=== PATIENT | female | born 1990 | race Caucasian/White ===

== ENCOUNTER 2017-09-24 23:51 | Observation (INO) | payer MEDICARE, MEDICAID ==
[2017-09-25 00:47] LABS: ABS Basophils 0.1 10^3/ul (0-0.2); ABS Eosinophils 0.2 10^3/ul (0-0.6); ABS Lymphocytes 3.9 10^3/ul (1.0-4.8); ABS Neutrophils 7.3 10^3/ul (1.5-7.7); ABS Nucleated RBC 0 10^3/ul; Eosinophil % 1.5 % (0-6); Hematocrit 37 % (35-47); Hemoglobin 12.4 g/dl (12.0-16.0); Lymphocyte % 31.2 % (25-47); Mean Corpuscular HGB Conc 33 g/dl (31-36); Mean Corpuscular Hemoglobin 28 pg (27-31); Mean Corpuscular Volume 83 fL (80-97); Mean Platelet Volume 9.2 um3 (7.4-10.4); Nucleated Red Blood Cells % 0; Platelet Count 212 10^3/ul (150-450); Red Blood Count 4.48 10^6/ul (4.0-5.4); Red Cell Distribution Width 13 % (10.5-15); White Blood Count 12.5 10^3/ul (3.5-10.8)
[2017-09-25] MEDS ORDERED: traMADol TAB* 50 MG PO PRN (04:29)
[2017-09-25] MEDS ORDERED: Albuterol 2.5 MG/3 ML NEB.SOL* (0.083%) INH PRN (04:29)
[2017-09-25] MEDS ORDERED: Acetaminophen TAB* 325 MG PO PRN (04:29)
[2017-09-25] MEDS ORDERED: Ondansetron INJ* 2 MG/ML VIAL IV PRN (04:29)
[2017-09-25] MEDS ORDERED: NS 0.9% 1000 ML* 1,000 ML IV SCH (04:30)
[2017-09-25] MEDS: Omeprazole CAP* 20 MG PO SCH (04:59)
[2017-09-25 05:36] LABS: Hematocrit 36 % (35-47); Hemoglobin 12.3 g/dl (12.0-16.0); Mean Corpuscular HGB Conc 34 g/dl (31-36); Mean Corpuscular Hemoglobin 28 pg (27-31); Mean Corpuscular Volume 83 fL (80-97); Mean Platelet Volume 9.7 um3 (7.4-10.4); Platelet Count 211 10^3/ul (150-450); Red Blood Count 4.35 10^6/ul (4.0-5.4); Red Cell Distribution Width 13 % (10.5-15); White Blood Count 10.5 10^3/ul (3.5-10.8)
--- NOTE | 2017-09-25 06:04 | HP ---
H&P (Free Text) History and Physical: PCP: Dr Serna Date/Time: 09/25/2017 0130 CC: chest pain HPI: Mrs Peterson is a 27YO female HX GERD & Mobitz I who has been under increased stress of late. She reports onset of sharp L chest pain radiating to the LUE associated with sweats, palpitations, & light-headedness, but no SOB or N/V. She was diagnosed with bronchitis Saturday and has had copious coughing, congestion, & phlegm, but no F/C. Bowel and bladder are normal. She presented to [facility] ED where her troponin increased prompting request for transfer. PMedHx GERD Mobitz I Ambulatory Orders Nexium 1 cap PO DAILY 09/25/17 Allergies albuterol Allergy (Verified 09/25/17 05:49) Tachycardia cephalexin Allergy (Verified 09/25/17 05:49) Hives codeine Allergy (Verified 09/25/17 05:49) Blisters diphenhydramine Allergy (Verified 09/25/17 05:49) Hives epinephrine Allergy (Verified 09/25/17 05:49) See Comment pt states makes thing worse instead of better fluoxetine Allergy (Verified 09/25/17 05:49) See Comment Suicidal Ideations lorazepam Allergy (Verified 09/25/17 05:49) Hives sertraline Allergy (Verified 09/25/17 05:49) Hives PSurgHx B knee arthroscopies SocHx: reports 1/4PPD cigarettes but states it is much more, denies alcohol & recreational drugs; lives with her ; full code status FamHx: Mother: CAD onset in her 50s; Father: CAD onset in his 30s. ROS: as above, otherwise reviewed and all were negative vitals: Vital Signs Temp 37.0 C 09/25/17 03:41 Pulse 85 09/25/17 03:41 Resp 16 09/25/17 04:59 BP 107/65 09/25/17 03:41 Pulse Ox 99 09/25/17 03:41 Intake & Output 09/24/17 09/24/17 09/25/17 11:59 23:59 11:59 Weight 95.164 kg Constitutional: NAD, normally developed, obese female HEENM: atraumatic; sclera/conjunctiva: anicteric/clear; hearing: clinically intact; oropharynx: clear, mucosa moist Neck: soft tissue: non-tender; thyroid: normal Pulmonary: clear to auscultation bilaterally, good aeration, no accessory muscle use CV: RR/RR, normal S1S2, no carotid bruit, no jugular venous distention, 2+ B DP/ PT, no edema Abdominal: soft, non-distended, non-tender, no rebound/guarding/rigidity, normoactive bowel sounds, no hepatosplenomegaly or masses, no costovertebral angle tenderness Musculoskeletal: general: grossly intact, no tenderness to palpation Integumental: circular scarring B breasts due to "trauma" which she declines to elaborate upon Psychiatric orientation: AA&O to PPS affect: fatigued mood: cooperative eye contact: poor content: mostly reliable responses: timely insight: fair Testing: Lab Results 09/25/17 09/25/17 09/25/17 Range/Units 00:38 00:38 00:38 WBC 12.5 H (3.5-10.8) 10^3/ul RBC 4.48 (4.0-5.4) 10^6/ul Hgb 12.4 (12.0-16.0) g/dl Hct 37 (35-47) % MCV 83 (80-97) fL MCH 28 (27-31) pg MCHC 33 (31-36) g/dl RDW 13 (10.5-15) % Plt Count 212 (150-450) 10^3/ul MPV 9.2 (7.4-10.4) um3 Neut % (Auto) 58.4 (38-83) % Lymph % (Auto) 31.2 (25-47) % [place] % (Auto) 7.7 H (0-7) % Eos % (Auto) 1.5 (0-6) % Baso % (Auto) 1.2 (0-2) % Absolute Neuts (auto) 7.3 (1.5-7.7) 10^3/ul Absolute Lymphs (auto) 3.9 (1.0-4.8) 10^3/ul Absolute Monos (auto) 1.0 H (0-0.8) 10^3/ul Absolute Eos (auto) 0.2 (0-0.6) 10^3/ul Absolute Basos (auto) 0.1 (0-0.2) 10^3/ul Absolute Nucleated RBC 0 10^3/ul Nucleated RBC % 0 D-Dimer, Quantitative (Less Than 230) ng/mL Sodium 137 L (139-145) mmol/L Potassium 3.6 (3.5-5.0) mmol/L Chloride 107 (101-111) mmol/L Carbon Dioxide 22 (22-32) mmol/L Anion Gap 8 (2-11) mmol/L BUN 10 (6-24) mg/dL Creatinine 0.79 (0.51-0.95) mg/dL Est GFR ( Amer) 113.1 (>60) Est GFR (Non-Af Amer) 88.0 (>60) BUN/Creatinine Ratio 12.7 (8-20) Glucose 134 H (70-100) mg/dL Lactic Acid 0.6 (0.5-2.0) mmol/L Calcium 8.8 (8.6-10.3) mg/dL Total Bilirubin 0.20 (0.2-1.0) mg/dL AST 12 L (13-39) U/L ALT 15 (7-52) U/L Alkaline Phosphatase 91 (34-104) U/L Troponin I 0.04 H* (<0.04) ng/mL Total Protein 6.1 L (6.4-8.9) g/dL Albumin 3.4 (3.2-5.2) g/dL Globulin 2.7 (2-4) g/dL Albumin/Globulin Ratio 1.3 (1-3) 09/25/17 09/25/17 09/25/17 Range/Units 00:38 05:03 05:03 WBC 10.5 (3.5-10.8) 10^3/ul RBC 4.35 (4.0-5.4) 10^6/ul Hgb 12.3 (12.0-16.0) g/dl Hct 36 (35-47) % MCV 83 (80-97) fL MCH 28 (27-31) pg MCHC 34 (31-36) g/dl RDW 13 (10.5-15) % Plt Count 211 (150-450) 10^3/ul MPV 9.7 (7.4-10.4) um3 Neut % (Auto) (38-83) % Lymph % (Auto) (25-47) % [place] % (Auto) (0-7) % Eos % (Auto) (0-6) % Baso % (Auto) (0-2) % Absolute Neuts (auto) (1.5-7.7) 10^3/ul Absolute Lymphs (auto) (1.0-4.8) 10^3/ul Absolute Monos (auto) (0-0.8) 10^3/ul Absolute Eos (auto) (0-0.6) 10^3/ul Absolute Basos (auto) (0-0.2) 10^3/ul Absolute Nucleated RBC 10^3/ul Nucleated RBC % D-Dimer, Quantitative < 200 (Less Than 230) ng/mL Sodium (139-145) mmol/L Potassium (3.5-5.0) mmol/L Chloride (101-111) mmol/L Carbon Dioxide (22-32) mmol/L Anion Gap (2-11) mmol/L BUN (6-24) mg/dL Creatinine (0.51-0.95) mg/dL Est GFR ( Amer) (>60) Est GFR (Non-Af Amer) (>60) BUN/Creatinine Ratio (8-20) Glucose (70-100) mg/dL Lactic Acid (0.5-2.0) mmol/L Calcium (8.6-10.3) mg/dL Total Bilirubin (0.2-1.0) mg/dL AST (13-39) U/L ALT (7-52) U/L Alkaline Phosphatase (34-104) U/L Troponin I 0.02 (<0.04) ng/mL Total Protein (6.4-8.9) g/dL Albumin (3.2-5.2) g/dL Globulin (2-4) g/dL Albumin/Globulin Ratio (1-3) ECG, personally reviewed: sinus rhythm rate 90, NV depression III, J-point elevation V2-3 Impression: 27F presenting with atypical chest pain for r/o ACS DIAGNOSIS & PLAN Primary atypical chest pain r/o ACS : telemetry : trend troponin : given aspirin via EMS en route from [facility] : exercise stress test in AM : supplemental oxygen : supportive care Secondary GERD : continue esomeprazole Admission Rational: observation for r/o ACS DVTp: BERTA Code Status: full HCP:
[2017-09-25] MEDS ORDERED: Ibuprofen TAB* 600 MG PO PRN (09:40)
[2017-09-25] MEDS: Docusate CAP* 100 MG PO SCH ×2 (10:08→20:18)
[2017-09-25] MEDS ORDERED: Aspirin EC TAB* 325 MG PO ONE (10:47)
--- NOTE | 2017-09-25 11:57 | PN ---
Subjective Date of Service: 09/25/17 Interval History: Pt c/o URI symptoms for 2 weeks, son who is 2 yrs old also sick. CP developed 1 day ago, pleuritic, worse with laying down Objective Active Medications: Acetaminophen (Tylenol Tab*) 650 mg PO Q6H PRN PRN Reason: FEVER/PAIN Albuterol (Ventolin 2.5 Mg/3 Ml Neb.Olga*) 2.5 mg INH Q2H PRN PRN Reason: SOB/WHEEZING Aspirin (Aspirin Tab*) 650 mg PO TID [facility] Colchicine (Colcrys*) 0.6 mg PO DAILY [facility] Docusate Sodium (Colace Cap*) 200 mg PO BID [facility] Last Admin: 09/25/17 10:08 Dose: Not Given Omeprazole (Prilosec Cap*) 20 mg PO DAILY@0600 [facility] Last Admin: 09/25/17 04:59 Dose: 20 mg Ondansetron HCl (Zofran Inj*) 4 mg IV Q6H PRN PRN Reason: NAUSEA Vital Signs - 8 hr 09/25/17 09/25/17 09/25/17 04:59 07:54 08:00 Temperature 98.3 F Pulse Rate 76 Respiratory 16 18 18 Rate Blood Pressure 106/57 (mmHg) O2 Sat by Pulse 98 99 Oximetry 09/25/17 09/25/17 10:57 11:26 Temperature 98.7 F Pulse Rate 86 81 Respiratory 14 18 Rate Blood Pressure 109/52 (mmHg) O2 Sat by Pulse 98 95 Oximetry Oxygen Devices in Use Now: None Appearance: 27 yo F in nAD, aAOx4 Eyes: No Scleral Icterus, PERRLA Ears/Nose/Mouth/Throat: NL Teeth, Lips, Gums, Mucous Membranes Moist Neck: NL Appearance and Movements; NL JVP, Trachea Midline Respiratory: Symmetrical Chest Expansion and Respiratory Effort, Clear to Auscultation Cardiovascular: NL Sounds; No Murmurs; No JVD, RRR Abdominal: NL Sounds; No Tenderness; No Distention, No Hepatosplenomegaly Lymphatic: No Cervical Adenopathy Extremities: No Edema, No Clubbing, Cyanosis Skin: No Rash or Ulcers, No Nodules or Sclerosis Neurological: Alert and Oriented x 3, NL Muscle Strength and Tone Result Diagrams: 09/25/17 05:03 09/25/17 00:38 Assess/Plan/Problems-Billing Assessment: 27 yo F with h/o Mobitz 2(not evaluated by a content strategist yet), ibuprofen OD(at age 16 yo) presents with peluritic CP - Patient Problems (1) Chest pain Comment: EKG changes, elevated CRP and history consistent with pericarditis. will start ASA TID (pt overdosed on ibuprofen at age 16 yo) and daily colchicine Echo pending (2) Mobitz type 2 second degree atrioventricular block Comment: pt was noted to have Mobitz 2 - 2 yrs ago , but has never seen a content strategist will d/w cardiology (3) DVT prophylaxis Comment: ambulatory Status and Disposition: OBV, d/c tomorrow
[2017-09-25] MEDS: Colchicine* 0.6 MG TAB PO SCH (12:36)
--- NOTE | 2017-09-25 12:58 | ECHO ---
Patient: FREDI MIGUEL [facility] Rec#: [id number] : 1990 Date: 09/25/2017 Age: 27y Height: 157.48 cm / 62.0 in Weight: 94.8 kg / 208.9 lbs Sex: F BSA: 1.95 Room#: 432 Admit Date#: 09/25/2017 Type: Inpatient Referring: Yolande Jones MD Reading: Denisse Franklin MD Sizing Sprayer: Zuleyka McclainRDCS,RDMS Transthoracic Echocardiogram Indication: CP BP: 106/57 HR: 77 Rhythm: NSR Findings History: Smoker, GERD, Mobitz I Technical Comments: The study quality is good. Left Ventricle: The left ventricular chamber size is normal. Mild concentric left ventricular hypertrophy is observed.1.1 cm Global left ventricular wall motion and contractility are within normal limits. The estimated ejection fraction is 60-65%. Normal left ventricular diastolic filling is observed. Left Atrium: The left atrial chamber size is normal. Right Ventricle: The right ventricular chamber size and systolic function are within normal limits. Right Atrium: The right atrial cavity size is normal. Aortic Valve: There is no evidence of aortic valve thickening. There is a trace of aortic regurgitation.Forward flow in LVOT noted in late diastole. There is no evidence of aortic stenosis. Mitral Valve: The mitral valve leaflets appear normal. There is a trace of mitral regurgitation. There is no evidence of mitral stenosis. Tricuspid Valve: The tricuspid valve leaflets are normal. There is trace tricuspid regurgitation. Unable to estimate the right ventricular systolic pressure. Pulmonic Valve: The pulmonic valve structure is not well visualized. There is no evidence of pulmonic regurgitation. Pericardium: There is no significant pericardial effusion. Aorta: The aortic root appears normal. There is no dilatation of the aortic arch. Pulmonary Artery: The main pulmonary artery is not well visualized. Venous: The inferior vena cava appears normal. Conclusions Normal LV chamber diameter. Mild concentric left ventricular hypertrophy is observed.1.1 cm Global left ventricular wall motion and contractility are within normal limits. The estimated ejection fraction is 60-65%. The right ventricular chamber size and systolic function are within normal limits. All valves show good excursion. There is a trace of aortic regurgitation with forward flow in LVOT noted in late diastole. There is a trace of mitral regurgitation. There is trace tricuspid regurgitation. There is no significant pericardial effusion. No prior echo to compare. Measurements Name Value Normal Range RVIDd (AP) 2D 2.2 cm (0.9 - 2.6) RAd ISD 4CH 4.4 cm (3.4 - 4.9) RA (A4C)W 3.6 cm (2.9 - 4.6) IVSd (2D) 1.1 cm (0.6 - 1) LVPWd (2D) 1.1 cm (0.6 - 1) LVIDd (2D) 3.6 cm (3.6 - 5.4) LVIDs (2D) 1.9 cm - LV FS (2D) 48 % (25 - 45) Aortic Annulus 2.3 cm (1.4 - 2.6) Ao root diameter (2D) 2.6 cm (2.1 - 3.5) Ascending Ao 2.3 cm (2.1 - 3.4) Aortic arch 2.3 cm (1.8 - 3.4) LA dimension (AP) 2D 2.9 cm (2.3 - 3.8) LAd ISD 4CH 4.6 cm (2.9 - 5.3) LA ISD 4CH W 3.7 cm (2.5 - 4.5) Name Value Normal Range LA ESV SP 4CH (A/L) 44.1 ml - LA ESV SP 2CH (A/L) 61.22 ml - LA ESV BP (A/L) 52.58 ml - LA ESV BP (A/L) index 27 ml/m2 - LA ESV SP 4CH (MOD) 39.44 ml - LA ESV SP 2CH (MOD) 58.62 ml - Name Value Normal Range MV E-wave Vmax 1.1 m/sec - MV deceleration time 155 msec - MV A-wave Vmax 0.6 m/sec - MV E:A ratio 1.8 ratio - LV septal e' Vmax 0.13 m/sec - LV lateral e' Vmax 0.1 m/sec - LV E:e' septal ratio 8.5 ratio - LV E:e' lateral ratio 11 ratio - Name Value Normal Range AV Vmax 1.4 m/sec - AV VTI 30.1 cm - AV peak gradient 8 mmHg - AV mean gradient 4.3 mmHg - LVOT Vmax 1.3 m/sec - LVOT VTI 25 cm - LVOT peak gradient 7 mmHg - LVOT mean gradient 3.5 mmHg - KAROL Vmax 1.2 m/sec - Name Value Normal Range MV Vmax 1.2 m/sec - MV VTI 22 cm - MV peak gradient 6 mmHg - MV mean gradient 2.3 mmHg - MV PHT 50 msec - MVA (PHT) 4.4 cm2 - Name Value Normal Range RAP 8 mmHg - IVC diameter 1.5 cm - Name Value Normal Range PV Vmax 0.8 m/sec - PV peak gradient 2.6 mmHg -
[2017-09-25] MEDS ORDERED: Ibuprofen TAB* 600 MG PO SCH (14:00)
[2017-09-25] MEDS: Aspirin TAB* 325 MG PO SCH ×2 (14:58→20:16)
[2017-09-26] MEDS: Omeprazole CAP* 20 MG PO SCH (05:18)
[2017-09-26] MEDS ORDERED: Aspirin EC TAB* 81 MG TAB.EC PO SCH (09:00)
[2017-09-26] MEDS: Aspirin TAB* 325 MG PO SCH (09:46)
[2017-09-26] MEDS: Docusate CAP* 100 MG PO SCH (09:46)
[2017-09-26] MEDS: Colchicine* 0.6 MG TAB PO SCH (09:47)
--- NOTE | 2017-09-26 13:04 | PN ---
Objective Active Medications: Acetaminophen (Tylenol Tab*) 650 mg PO Q6H PRN PRN Reason: FEVER/PAIN Last Admin: 09/25/17 17:17 Dose: 650 mg Albuterol (Ventolin 2.5 Mg/3 Ml Neb.Olga*) 2.5 mg INH Q2H PRN PRN Reason: SOB/WHEEZING Aspirin (Aspirin Tab*) 650 mg PO TID [facility] Last Admin: 09/26/17 09:46 Dose: 650 mg Colchicine (Colcrys*) 0.6 mg PO DAILY [facility] Last Admin: 09/26/17 09:47 Dose: 0.6 mg Docusate Sodium (Colace Cap*) 200 mg PO BID [facility] Last Admin: 09/26/17 09:46 Dose: Not Given Omeprazole (Prilosec Cap*) 20 mg PO DAILY@0600 [facility] Last Admin: 09/26/17 05:18 Dose: Not Given Ondansetron HCl (Zofran Inj*) 4 mg IV Q6H PRN PRN Reason: NAUSEA Vital Signs - 8 hr 09/26/17 09/26/17 09/26/17 05:26 07:29 07:32 Temperature 97.8 F Pulse Rate 72 78 Respiratory 16 16 18 Rate Blood Pressure 100/52 (mmHg) O2 Sat by Pulse 97 98 97 Oximetry Oxygen Devices in Use Now: None Result Diagrams: 09/25/17 05:03 09/25/17 00:38 Assess/Plan/Problems-Billing Assessment: 27 yo F with h/o Mobitz 2(not evaluated by a horse breeder yet), ibuprofen OD(at age 16 yo) presents with peluritic CP - Patient Problems (1) Chest pain Comment: EKG changes, elevated CRP and history consistent with pericarditis. will start ASA TID (pt overdosed on ibuprofen at age 16 yo) and daily colchicine Echo pending (2) DVT prophylaxis Comment: ambulatory (3) Mobitz I Status and Disposition: OBV, d/c tomorrow
[2017-09-26 13:10] VITALS: BP 129/68
--- NOTE | 2017-09-26 17:55 | DS ---
CC: Dr. Serna* DISCHARGE SUMMARY: DATE OF ADMISSION: 09/25/17 DATE OF DISCHARGE: 09/26/17 PRIMARY CARE PROVIDER: Dr. Serna. DISCHARGE DIAGNOSIS: Pleuritic chest pain due to acute pericarditis. SECONDARY DIAGNOSES: 1. History of gastroesophageal reflux disease. 2. History of Mobitz type I atrioventricular block for the past 2 years. MEDICATIONS AT DISCHARGE: Include: 1. Aspirin 650 mg 3 times a day for a week. The suggested taper after this 1 week would be 2 times a day for a week, then 1 dose a day for a week, and then stop. 2. Colchicine 0.6 mg daily for at least 1 month. It could be extended to 3 months at the discretion of primary care provider. 3. Nexium 1 tablet daily. LABORATORY DATA AND STUDIES PERFORMED DURING THE HOSPITAL STAY: Included: ESR was 27. The patient's troponin was 0.04, the second one was 0.02. The patient's C- reactive protein was 52. The patient's D-dimer was below 200. The patient's transthoracic echocardiogram obtained on 09/25/17 shows EF of 60% to 65% with global left ventricular wall motion and contractility within normal limits. There was trace aortic regurgitation and no significant pericardial effusion. HOSPITALIZATION COURSE: Sandrita Peterson is a 27-year-old female, who presented to the hospital complaining of pleuritic chest pain. She had significant ST changes that were consistent with pericarditis on her EKG. The patient also has a history of Mobitz type I block and occasionally, she would drop her QRS beat, which is also known and the patient has been carrying the diagnosis for the past Mobitz type 1 in the past 2 years. The patient was treated with aspirin and colchicine with good results and she is ready to go home by the time of discharge with her pain being alleviated well enough with aspirin. The patient was advised not to perform strenuous exercise when the pain is still present. The patient will likely require prolonged taper with aspirin, but for the time being, she was prescribed a week's worth of aspirin of 650 mg 3 times a day. She declined to take ibuprofen since she overdosed on ibuprofen when she was 16. I suspect the patient will require still taper down of aspirin for twice a day for another week and once a day for week #3. Colchicine was prescribed for a total of 1 month. The patient is recommended to follow up with the primary care provider in approximately 4 to 7 days. PHYSICAL EXAMINATION AT THE TIME OF DISCHARGE: Blood pressure of 129/68, heart rate of 79 and regular, respiratory rate 16, oxygen saturation 98% on room air, temperature is 98.2. General: The patient is a very pleasant 27-year-old female, who is in no acute distress. Alert and oriented x3. HEENT: Head: Atraumatic, normocephalic. Eyes: Pupils are equal and reactive to light and accommodation. Oropharynx clear. Mucosa moist. Neck: Supple. No JVD. No bruits bilaterally. Cardiovascular: Regular rate and rhythm. No murmur. Respiratory: Clear to auscultation bilaterally. Abdomen: Soft, nontender. Bowel sounds are present in all 4 quadrants. Extremities: There is no edema. Pulses are +2 bilaterally. No clubbing or cyanosis. Neuro Evaluation: Speech is clear. Cranial nerves II through XII are grossly intact. Motor strength is 5/5 bilaterally. Please not that this is a short summary of the patient's hospitalization. Please refer to further medical records for details. TIME SPENT: Approximately 35 minutes was spent on the patient's discharge. [id number]/CPS #: [id number] [facility] CENTERJose
== END 2017-09-26 13:57 | disposition home or self-care (01) ==
LOC: MEDTELE 09-25 00:11
PROVIDERS: ADMIT Hospitalist; ATTEND Internal Medicine
DX: I30.9 Acute pericarditis, unspecified (principal); R07.81 Pleurodynia; K21.9 Gastro-esophageal reflux disease without esophagitis; I44.1 Atrioventricular block, second degree; Z88.8 Allergy status to other drugs, medicaments and biological substances; F17.210 Nicotine dependence, cigarettes, uncomplicated; Z79.899 Other long term (current) drug therapy; R94.31 Abnormal electrocardiogram [ECG] [EKG]; I51.7 Cardiomegaly
CPT/HCPCS: 36415; 80053; 83605; 84484; 85025; 85027; 85379; 85652; 86140; 93005; 93306; 96360; 96361; 99406; A9270-GY; G0378

== ENCOUNTER 2019-06-04 21:11 | Inpatient (IN) | payer MEDICARE, MEDICAID ==
--- NOTE | 2019-06-04 22:03 | ED ---
Psychiatric Complaint - HPI Summary HPI Summary: This patient is a 29 year old female brought in by [place] Police on a 941 presenting to [facility] with a chief complaint of SI. She states she wants to OD on medication. She denies any past medical problems. She states she overdosed on Klonopin 5 years ago in a previous attempt and wants to try it again. She reports headaches. - History Of Current Complaint Chief Complaint: EDMentalHealth Time Seen by Provider: 06/04/19 21:35 Hx Obtained From: Patient Onset/Duration: Lasting Days Has Suicidal: Reports: Thoughts, With A Plan - Allergies/Home Medications Allergies/Adverse Reactions: Allergies Allergy/AdvReac Type Severity Reaction Status Date / Time albuterol Allergy Tachycardia Verified 06/04/19 21:21 cephalexin Allergy Hives Verified 06/04/19 21:21 clonazepam [From Klonopin] Allergy See Comment Verified 06/04/19 21:21 codeine Allergy Blisters Verified 06/04/19 21:21 diphenhydramine Allergy Hives Verified 06/04/19 21:21 epinephrine Allergy See Comment Verified 06/04/19 21:21 fluoxetine Allergy See Comment Verified 06/04/19 21:21 lorazepam Allergy Hives Verified 06/04/19 21:21 sertraline Allergy Hives Verified 06/04/19 21:21 Home Medications: Home Medications LoraTADine TAB(NF) [Claritin 10 MG TAB(NF)] 10 mg PO DAILY 06/04/19 [History Confirmed 06/04/19] PMH/Surg Hx/FS Hx/Imm Hx Cardiovascular History: Denies: Hx Coronary Artery Disease Sensory History: Reports: Hx Contacts or Glasses Denies: Hx Hearing Aid Opthamlomology History: Reports: Hx Contacts or Glasses Infectious Disease History: No Infectious Disease History: Denies: Traveled Outside the [place] in Last 30 Days - Family History Known Family History: Negative: Hypertension - Social History Alcohol Use: None Substance Use Type: Reports: Marijuana Smoking Status (MU): Light Every Day Tobacco Smoker Review of Systems Negative: Fever Positive: Headache Positive: Other - SI All Other Systems Reviewed And Are Negative: Yes Physical Exam - Summary Physical Exam Summary: General: Well-developed, Well-nourished FEMALE. No acute distress. HEENT: Normocephalic, Atraumatic. Eyes: Conjuctiva normal, PERRL. Oropharynx: Clear, mucous membranes moist, (-) exudates. Neck: Soft, FROM, (-) lymphadenopathy, (-) thyromegaly, (-) JVD. Cardiovascular: Normal sinus rhythm, (-) murmur. Lungs: Clear to auscultation bilaterally (-) wheezes, (-) rales, (-) rhonchi. Abdomen: Soft, non-tender, non-distended, (-) organomegaly, normal bowel sounds. Back: (-) CVA tenderness Extremities: No edema. Skin: Warm, dry, (-) rash. Neuro: Alert and oriented x3, no focal deficits. Psychiatric: Mood normal, affect normal. Triage Information Reviewed: Yes Vital Signs On Initial Exam: Initial Vitals Temp Pulse Resp BP Pulse Ox 98.5 F 89 16 129/109 100 06/04/19 21:13 06/04/19 21:13 06/04/19 21:13 06/04/19 21:13 06/04/19 21:13 Vital Signs Reviewed: Yes Procedures - Sedation Patient Received Moderate/Deep Sedation with Procedure: No Diagnostics - Vital Signs Vital Signs Temp Pulse Resp BP Pulse Ox 06/04/19 21:13 98.5 F 89 16 129/109 100 - Laboratory Result Diagrams: 06/04/19 22:01 06/04/19 22:01 Lab Statement: Any lab studies that have been ordered have been reviewed, and results considered in the medical decision making process. - Radiology Foot XR Radiology Interpretation Completed By: ED Physician Summary of Radiographic Findings: No significant fracture. No prior to compare. Pending official radiologist report. Re-Evaluation - Re-Evaluation First Eval Re-Evaluation Time: 01:04 Comment: Patient became very anxious and agitated in flex. Patient was put on Trazadone to help her sleep because of limited options due to allergy. Course/Dx - Course Course Of Treatment: 29 year old female brought in by police for mental health evaluation. patient feeling suicidal. withdrawn writes notes rather than talking to me. exam and workup essentially normal. mental health evaluation completed and psychiatrist recommended admission. involuntary admission completed. - Differential Dx/Clinical Impression Provider Diagnosis: Depressive episode Discharge ED - Sign-Out/Discharge Documenting (check all that apply): Patient Departure - Admission, per Dr. Sapp [facility] - Discharge Plan Condition: Stable Disposition: PSYCHIATRIC FACILITY[facility] - Billing Disposition and Condition Condition: STABLE Disposition: Psychiatric Facility [facility] - Attestation Statements Document Initiated by Deepaibe: Yes Documenting Scribe: Dio Blanc Provider For Whom Radha is Documenting (Include Credential): Carmen Byrd MD Scribe Attestation: Dio Byrne, scribed for Carmen Byrd MD on 06/05/19 at 0132. Scribe Documentation Reviewed: Yes Provider Attestation: The documentation as recorded by the Dio nunez accurately reflects the service I personally performed and the decisions made by me, Carmen Byrd MD Status of Scribe Document: Viewed
[2019-06-04 22:08] LABS: ABS Basophils 0.2 10^3/ul (0-0.2); ABS Eosinophils 0.5 10^3/ul (0-0.6); ABS Monocytes 0.9 10^3/ul (0-0.8); ABS Neutrophils 10.7 10^3/ul (1.5-7.7); Eosinophil % 3.4 %; Hematocrit 40 % (35-47); Hemoglobin 13.6 g/dL (12.0-16.0); Lymphocyte % 19.8 %; Mean Corpuscular HGB Conc 35 g/dL (31-36); Mean Corpuscular Hemoglobin 29 pg (27-31); Mean Corpuscular Volume 84 fL (80-97); Mean Platelet Volume 9.5 fL (7.4-10.4); Nucleated Red Blood Cells % 0.1; Platelet Count 236 10^3/uL (150-450); Red Blood Count 4.71 10^6 /uL (3.70-4.87); Red Cell Distribution Width 13 % (10-15); White Blood Count 15.3 10^3/uL (3.5-10.8)
[2019-06-04 22:16] LABS: Urine Appearance Cloudy; Urine Bilirubin Negative (Negative); Urine Blood Negative (Negative); Urine Color Yellow; Urine Glucose Negative (Negative); Urine Ketones Negative (Negative); Urine Nitrite Negative (Negative); Urine Protein Negative (Negative); Urine Specific Gravity 1.026 (1.010-1.030); Urine Urobilinogen Negative (Negative)
[2019-06-04] MEDS ORDERED: Acetaminophen TAB* 325 MG PO ONE (22:19)
[2019-06-04 22:25] LABS: ALT 27 U/L (7-52); AST 16 U/L (13-39); Albumin 3.6 g/dL (3.2-5.2); Albumin/Globulin Ratio 1.4 (1-3); Alkaline Phosphatase 84 U/L (34-104); Anion Gap 4 mmol/L (2-11); BUN/Creatinine Ratio 17.4 (8-20); Blood Urea Nitrogen 15 mg/dL (6-24); CO2 Carbon Dioxide 28 mmol/L (22-32); Chloride 106 mmol/L (101-111); EGFR African American 95.1 (>60); EGFR Non-African American 78.6 (>60); Globulin 2.5 g/dL (2-4); Glucose 121 mg/dL (70-100); Potassium 4.2 mmol/L (3.5-5.0); Sodium 138 mmol/L (135-145); Total Protein 6.1 g/dL (6.4-8.9)
[2019-06-04 22:31] LABS: Acetaminophen < 15 mcg/mL; Alcohol < 10 mg/dL (<10); HCG Pregnancy < 0.60 mIU/mL; Salicylate < 2.50 mg/dL (<30)
[2019-06-04 22:46] LABS: TSH (Thyroid Stimulating Horm) 1.95 mcIU/mL (0.34-5.60)
[2019-06-04 23:02] LABS: Urine Benzodiazepine Screen None Detected (None Detect); Urine Opiates Screen None Detected (None Detect)
--- OUTSIDE RECORDS SUMMARY | 2019-06-04 23:29 | XMS REPORT | Continuity of Care Document ---
:1990 External Reference #:[id number] Author Name Justyn Dougherty M.D. (transmitted by agent of provider Frances Vazquez) Address [address] [facility] [place] [address] Care Team Providers Name Role Phone Peter Serna MD - Family Medicine Care Team Information Professor Of Journalism [phone] Problems Description No Information Available Social History Type Date Description Comments Sex Unknown Tobacco Use Start: Unknown currently smokes 1/2 Pack Daily Smoking Status Reviewed: 04/16/19 currently smokes 1/2 Pack Daily ETOH Use Denies alcohol use Tobacco Use Start: Unknown Light tobacco smoker (10 or fewer cigarettes/day) Recreational Drug Use Denies Drug Use Exercise Type/Frequency Exercises regularly Exercise Type/Frequency Exercises at a health club 5 times a week Allergies, Adverse Reactions, Alerts Active Allergies Reaction Severity Comments Date Keflex 02/16/2019 Prozac 02/16/2019 Codeine 02/16/2019 Benadryl 02/16/2019 Zoloft 02/16/2019 Ativan 02/16/2019 Insulin Glargine 02/16/2019 Insulin All insulins 02/16/2019 Klonopin 02/16/2019 Albuterol 02/16/2019 Hydroxyzine 02/16/2019 Epipen 02/16/2019 Zofran 02/16/2019 Cetirizine 02/16/2019 Methylphenidate All ADHD medications 02/16/2019 Medications Active Medications SIG Qnty Indications Ordering Provider Date Claritin Unknown Immunizations Description No Information Available Vital Signs Date Vital Result Comment 04/16/2019 12:13pm Height 62 inches 5'2" Weight 208.00 lb Heart Rate 85 /min BP Systolic 120 mmHg left-lg BP Diastolic 70 mmHg left-lg BP Systolic Sitting 124 mmHg right-lg. BP Diastolic Sitting 72 mmHg right-lg. BP Systolic Standing 118 mmHg right-lg BP Diastolic Standing 70 mmHg right-lg Respiratory Rate 18 /min Body Temperature 98.2 F O2 % BldC Oximetry 97 % BMI (Body Mass Index) 38.0 kg/m2 04/06/2019 8:41am Height 62 inches 5'2" Weight 208.00 lb Heart Rate 81 /min BP Systolic Sitting 132 mmHg BP Diastolic Sitting 76 mmHg Body Temperature 97.7 F BMI (Body Mass Index) 38.0 kg/m2 Results Description No Information Available Procedures Date Code Description Status 03/03/2019 84877 Diffusing Capacity Completed 03/03/2019 09219 Plethysmography Determination Lung Volumes & Per Airway Completed Resist 03/03/2019 72235 Spirometry Incl Graphic Record Completed Medical Devices Description No Information Available Encounters Type Date Location Provider Dx Diagnosis Office Visit 03/18/2019 [facility] Bakari Rodriguez MD J45.998 Other asthma 1:40p [facility] G47.30 Sleep apnea, unspecified Office Visit 03/04/2019 3:15p [facility] Edgar Hollingsworth, S83.262A Prph tear of at [facility].D. lat mensc, current injury, left knee, init M71.22 Synovial cyst of popliteal space [Cain], left knee Office Visit 02/25/2019 10:15a [facility] Edgar Hollingsworth, M25.562 Pain in left at [place] M.D. knee M71.22 Synovial cyst of popliteal space [Cain], left knee M22.02 Recurrent dislocation of patella, left knee Office Visit 02/16/2019 11:20a [facility] Bakari Rodriguez, J45.998 Other asthma [facility] Assessments Date Code Description Provider 04/16/2019 R07.9 Chest pain, unspecified Justyn Dougherty M.D. 04/16/2019 R06.02 Dyspnea on exertion Justyn Dougherty M.D. 04/06/2019 M25.562 Pain in left knee Davion Helm MD 03/18/2019 J45.998 Other asthma Bakari Rodriguez MD 03/18/2019 G47.30 Sleep apnea, unspecified Bakari Rodriguez MD 03/04/2019 S83.262A Peripheral tear of lateral meniscus, Edgar Hollingsworth M.D. current injury, left knee, initial encounter 03/04/2019 M71.22 Synovial cyst of popliteal space [Cain], Edgar Hollingsworth M.D. left knee 03/03/2019 J45.998 Other asthma Candie Caceres MD 02/25/2019 M25.562 Pain in left knee Edgar Hollingsworth M.D. 02/25/2019 M71.22 Synovial cyst of popliteal space [Cain], Edgar Hollingsworth M.D. left knee 02/25/2019 M22.02 Recurrent dislocation of patella, left Edgar Hollingsworth M.D. knee 02/16/2019 J45.998 Other asthma Bakari Rodriguez MD Plan of Treatment Future Appointment(s):06/15/2019 10:15 am - Davion Helm MD at [facility] at Rxmlagxd97/14/2019 - Justyn Dougherty M.D.R07.9 Chest pain, unspecifiedNew Orders:Stress Test, Exercise Echocardiogram, Ordered: Follow up:6 nxajcP71.02 Dyspnea on exertion Functional Status Description No Information Available Mental Status Description No Information Available Referrals Description No Information Available
--- OUTSIDE RECORDS SUMMARY | 2019-06-04 23:29 | XMS REPORT | Continuity of Care Document ---
:1990 External Reference #:[id number] Author Name Ynes Taveras Care Team Providers Name Role Phone Peter Serna MD - Family Medicine Care Team Information Home Management Supervisor Problems Description No Information Available Social History [...] Information Available Procedures Date Code Description Status 04/16/2019 02250 EKG Tracing & Interpretation Completed 03/03/2019 72278 Diffusing Capacity Completed 03/03/2019 56772 Plethysmography Determination Lung Volumes & Per Airway Completed Resist 03/03/2019 65475 Spirometry Incl Graphic Record Completed Medical Devices Description No Information Available Encounters Type Date Location Provider Dx Diagnosis Office Visit 04/06/2019 [facility] Davion Menendez M25.562 Pain in left knee 8:45a at [place] Helm MD Office Visit 03/18/2019 [facility] Bakari Rodriguez MD J45.998 Other asthma 1:40p [facility] G47.30 Sleep apnea, unspecified Office Visit 03/04/2019 3:15p [facility] Edgar Hollingsworth, S83.262A Prph tear of at [facility].D. lat mensc, current injury, left knee, init M71.22 Synovial cyst of popliteal space [Cain], left knee Office Visit 02/25/2019 10:15a [facility] Edgar Hollingsworth, M25.562 Pain in left at [place] M.D knee M71.22 Synovial cyst of popliteal space [Cain], left knee M22.02 Recurrent dislocation of patella, left knee Office Visit 02/16/2019 11:20a Pulmon[facility] And Bakari Rodriguez J45.998 Other asthma [facility] [...] 10:15 am - Davion Helm MD at [facility] at Rdbsvuvr59/14/2019 - Justyn Dougherty M.D.R07.9 Chest pain, unspecifiedNew Orders:Stress Test, Exercise Echocardiogram, Ordered: Follow up:6 zgstfS43.02 Dyspnea on exertion Functional Status Description No Information Available Mental Status Description No Information Available Referrals Description No Information Available
[2019-06-05] MEDS ORDERED: traZODone TAB* 100 MG PO ONE (01:00)
[2019-06-05] MEDS ORDERED: Ibuprofen TAB* 400 MG PO ONE (02:05)
[2019-06-05] MEDS ORDERED: Ibuprofen TAB* 400 MG ONE (02:07)
[2019-06-05] MEDS ORDERED: Al Hydrox/Mg Hydrox/Simet LIQ* 30 ML UDC PO PRN (03:14)
[2019-06-05] MEDS: Vitamin THERAPEUTIC TAB PO SCH (10:58)
[2019-06-05] MEDS: Acetaminophen TAB* 325 MG PO PRN ×2 (10:59→17:22)
[2019-06-05] MEDS: Nicotine PATCH 14 MG/24 HR* PATCH TRANSDERM SCH (11:00)
[2019-06-05] MEDS ORDERED: Naproxen TAB* 250 MG PO ONE (13:10)
[2019-06-05] MEDS ORDERED: cloNIDine TAB* 0.1 MG ONE (13:13)
[2019-06-05] MEDS ORDERED: Naproxen TAB* 250 MG ONE (13:24)
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
[2019-06-05] MEDS ORDERED: chlorproMAZINE TAB* 100 MG ONE (19:32)
[2019-06-05] MEDS ORDERED: chlorproMAZINE TAB* 100 MG PO PRN (20:03)
[2019-06-05] MEDS ORDERED: hydrOXYzine HCL TAB* 50 MG PO PRN (20:16)
[2019-06-05] MEDS ORDERED: cloNIDine TAB* 0.1 MG PO SCH (21:00)
[2019-06-06] MEDS: Naproxen TAB* 375 MG PO PRN ×3 (00:54→21:02)
[2019-06-06] MEDS: Nicotine Patch Removal NOTE PATCH OFF SCH ×2 (02:09→22:36)
[2019-06-06] MEDS: Acetaminophen TAB* 325 MG PO PRN ×2 (05:14→10:25)
[2019-06-06] MEDS: Nicotine PATCH 14 MG/24 HR* PATCH TRANSDERM SCH (10:21)
[2019-06-06] MEDS: Escitalopram * 10 MG TAB PO SCH (10:22)
[2019-06-06] MEDS: Vitamin THERAPEUTIC TAB PO SCH (10:22)
--- NOTE | 2019-06-06 13:54 | PN ---
Subjective - Subjective Date of Service: 06/06/19 Service Type: 26054 Hosp care 15 min low complexity Subjective: Sandrita is seen in weekend coverage for NPP, Citlaly Bradshaw. The patient is on constant observations while awake because of threats of self-harm here on the unit. She intermittently will stop talking to others and rely on a pen and paper to communicate. This observer finds her in the day area, doing a puzzle with her 1:1 staff member. "I'm terrible. I wish I had hanged myself at home. " She is refusing the clonidine, stating that it sounds too much like "Klonopin " which she is allergic to. She is fixated on her injured foot and is requesting an orthopedic evaluation, which she is informed can occur on an outpatient basis. Objective - General Observations Appearance: Neat Appears Stated Age: Yes Stature: WNL Posture: WNL Eye Contact: Average - Interaction Observations Attitude Towards Examiner: Demanding Stated Mood: Dysphoric Affect: Bright Speech Pattern/Tone: Clear, Appropriate Thought Process: Coherent Perception: WNL Thought Content: Preoccupation/Ruminations Thought Process: Lethality: Suicidal Planning Hallucination Type: None Delusion Type: None - Cognitive Function Orientation: A&O x 4 Level of Consciousness: Awake Cognition: WNL Estimated Intelligence: Normal Insight: WNL Judgment Within Normal Limits: Yes - Medication Compliance Cooperative with Inpatient Medication Regimen: Yes - Group Participation Participates in Group Activities: Yes Assessment - Assessment Merits Inpatient Hospitalization: For Immediate Safety, For Stabilization Inpatient DSM-V Dx: F43.10 Clinical Impression: 29 y.o. single, AA female with a history of PTSD and [place] who arrives via [facility] on 9.41 status after calling 911 and threatening to kill herself. BSU: Problem List - Patient Problems (1) Post traumatic stress disorder (PTSD) Current Visit: Yes Status: Acute Priority: High Code(s): F43.10 - POST- TRAUMATIC STRESS DISORDER, UNSPECIFIED SNOMED Code(s): 14257913 Plan - Plan Treatment Plan: Name: SANDRITA MIGUEL Birthdate: 1990 [id number] The patient has been started on escitalopram 5mg PO qday. We will switch clonidine to prn propranolol for anxiety. On constant obs while awake for threats of self-harm here on the unit. She seems attention seeking with a mood that is incongruent with affect. Continue inpatient treatment. Continued Medication Management: Start Medication Medications: Current Medications Acetaminophen (Tylenol Tab*) 650 mg PO Q4H PRN PRN Reason: PAIN or TEMP > 101 F Last Admin: 06/06/19 10:25 Dose: 650 mg Al Hydrox/Mg Hydrox/Simethicone (Maalox Plus*) 30 ml PO Q4H PRN PRN Reason: INDIGESTION Chlorpromazine HCl (Thorazine Tab*) 100 mg PO Q6H PRN PRN Reason: AGITATION Escitalopram Oxalate (Lexapro *) 5 mg PO DAILY [facility] Last Admin: 06/06/19 10:22 Dose: 5 mg Hydroxyzine HCl (Atarax Tab*) 50 mg PO Q6H PRN PRN Reason: Anxiety Multivitamins (Theragran Tab*) 1 tab PO DAILY [facility] Last Admin: 06/06/19 10:22 Dose: 1 tab Naproxen (Naprosyn Tab*) 375 mg PO Q8HR PRN PRN Reason: PAIN - MODERATE Last Admin: 06/06/19 13:00 Dose: 375 mg Nicotine (Nicotine Patch 14 Mg/24 Hr*) 1 patch TRANSDERM DAILY [facility] Last Admin: 06/06/19 10:21 Dose: Not Given Pharmacy Profile Note (Nicotine Patch Removal Note*) 1 note PATCH OFF 2100 [facility] Last Admin: 06/06/19 02:09 Dose: Not Given Propranolol HCl (Inderal 10 Mg Tab) 10 mg PO TID PRN PRN Reason: anxiety - Discharge Plan Discharge Plan: Inpatient Hospitalization
[2019-06-07] MEDS: Acetaminophen TAB* 325 MG PO PRN (01:48)
[2019-06-07 08:16] LABS: HDL Cholesterol 39.2 mg/dL
[2019-06-07] MEDS: Vitamin THERAPEUTIC TAB PO SCH (09:28)
[2019-06-07] MEDS: Escitalopram * 10 MG TAB PO SCH (09:28)
[2019-06-07] MEDS: Naproxen TAB* 375 MG PO PRN (09:32)
[2019-06-07] MEDS: Nicotine PATCH 14 MG/24 HR* PATCH TRANSDERM SCH (09:57)
[2019-06-07] MEDS: Nicotine Patch Removal NOTE PATCH OFF SCH (21:39)
[2019-06-08] MEDS: Acetaminophen TAB* 325 MG PO PRN ×2 (05:10→09:28)
[2019-06-08] MEDS: Escitalopram * 10 MG TAB PO SCH (09:29)
[2019-06-08] MEDS: Vitamin THERAPEUTIC TAB PO SCH (09:29)
[2019-06-08] MEDS: Nicotine PATCH 14 MG/24 HR* PATCH TRANSDERM SCH (10:19)
--- NOTE | 2019-06-08 11:21 | PN ---
Subjective - Subjective Date of Service: 06/08/19 Service Type: 88840 Hosp care 25 min moderate complexity Subjective: Patient sitting on periphery of milieu with 1:1 staff this morning. Introduced self and patient was cooperative with conversation. She reports primary concern of PTSD symptoms, specifically night terrors. She agreed to trial prazosin and was encouraged to at least attend one group per shift and to include DBT. Patient reported to staff that she was ready to be discharged, citing mistrust of real estate underwriter. Vat House Laborer agreed to discharge. Patient later reported to staff that she is fearful to return home due to active suicidal ideation. She met with SW and real estate underwriter and expressed that I remind her of her grandmother. We discussed importance of identifying emotions and skills to assist in her healing. Objective - General Observations Appearance: Well Groomed Stature: Overweight Posture: Slumped Eye Contact: Average Behavior/Activity: Impulsive - Interaction Observations Attitude Towards Examiner: Cooperative, Anxious, Demanding, Manipulative Stated Mood: Dysphoric, Anxious Affect: Restricted Speech Pattern/Tone: Clear, Appropriate, Normal Volume Thought Process: Circumstantial Perception: WNL Thought Content: Preoccupation/Ruminations, Self-Deprecatory Thought Process: Lethality: Suicidal Planning Hallucination Type: Denies Delusion Type: Denies - Cognitive Function Orientation: A&O x 4 Level of Consciousness: Alert Cognition: Impaired Attention/Concentration Estimated Intelligence: Normal Insight: Mostly Blames Others for Problems Judgment Within Normal Limits: No Ability to Make Reasonable Decisions: Moderately Impaired - Medication Compliance Cooperative with Inpatient Medication Regimen: Yes - Group Participation Participates in Group Activities: Partial Assessment - Assessment Merits Inpatient Hospitalization: For Immediate Safety, For Stabilization Inpatient DSM-V Dx: F43.10 Clinical Impression: 29 y.o. single, AA female with a history of PTSD and borderline PD who arrives via [facility] on 9.41 status after calling 911 and threatening to kill herself. She continues to endorse suicidal ideation and merits hospitalization for immediate safety. Plan - Plan Treatment Plan: Name: FREDI MIGUEL Birthdate: 1990 [id number] continue acute intensive psychiatric treatment. DC constant observation, continue q15min safety. encourage programming attendance. DC propranolol. trial prazosin for PTSD symptoms. increase escitalopram to 10mg daily. discharge planning to include outpatient providers. Continued Medication Management: Start Medication Medications: Current Medications Acetaminophen (Tylenol Tab*) 650 mg PO Q4H PRN PRN Reason: PAIN or TEMP > 101 F Last Admin: 06/08/19 09:28 Dose: 650 mg Al Hydrox/Mg Hydrox/Simethicone (Maalox Plus*) 30 ml PO Q4H PRN PRN Reason: INDIGESTION Chlorpromazine HCl (Thorazine Tab*) 100 mg PO Q6H PRN PRN Reason: AGITATION Last Admin: 06/07/19 18:29 Dose: 100 mg Escitalopram Oxalate (Lexapro *) 5 mg PO DAILY [facility] Last Admin: 06/08/19 09:29 Dose: 10 mg Hydroxyzine HCl (Atarax Tab*) 50 mg PO Q6H PRN PRN Reason: Anxiety Multivitamins (Theragran Tab*) 1 tab PO DAILY [facility] Last Admin: 06/08/19 09:29 Dose: 1 tab Naproxen (Naprosyn Tab*) 375 mg PO Q8HR PRN PRN Reason: PAIN - MODERATE Last Admin: 06/07/19 09:32 Dose: 375 mg Nicotine (Nicotine Patch 14 Mg/24 Hr*) 1 patch TRANSDERM DAILY [facility] Last Admin: 06/08/19 10:19 Dose: Not Given Pharmacy Profile Note (Nicotine Patch Removal Note*) 1 note PATCH OFF 2100 [facility] Last Admin: 06/07/19 21:39 Dose: Not Given Prazosin HCl (Minipress 1 Mg Cap) 1 mg PO DAILY PRN PRN Reason: ANXIETY Prazosin HCl (Minipress 1 Mg Cap) 1 mg PO BEDTIME [facility] - Discharge Plan Discharge Plan: Inpatient Hospitalization
[2019-06-08] MEDS: Nicotine Patch Removal NOTE PATCH OFF SCH (21:57)
[2019-06-09] MEDS: Acetaminophen TAB* 325 MG PO PRN (00:09)
[2019-06-09] MEDS: Nicotine PATCH 14 MG/24 HR* PATCH TRANSDERM SCH (08:31)
[2019-06-09] MEDS: Escitalopram * 10 MG TAB PO SCH (08:32)
[2019-06-09] MEDS: Vitamin THERAPEUTIC TAB PO SCH (08:32)
[2019-06-09 09:34] VITALS: BP 170/76
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
== END 2019-06-09 10:50 | disposition home or self-care (01) | DRG 882 ==
LOC: ED 21:11 → BSU 06-05 00:30
PROVIDERS: ADMIT Psychiatry & Neurology Psychiatry; ATTEND Psychiatry & Neurology Psychiatry
DX: F43.10 Post-traumatic stress disorder, unspecified (principal); R45.851 Suicidal ideations; F60.3 Borderline personality disorder; F17.200 Nicotine dependence, unspecified, uncomplicated; Z62.810 Personal history of physical and sexual abuse in childhood; Z88.8 Allergy status to other drugs, medicaments and biological substances; Z88.5 Allergy status to narcotic agent; Z88.1 Allergy status to other antibiotic agents; Z91.5 Personal history of self-harm
CPT/HCPCS: 36415; 80053; 80061; 80307; 80320; 80329; 81003; 83036; 84443; 84702; 85025; 99222; 99231; 99232; 99238; 99284; A9270-GY; G0480